=== PATIENT | female | born 1970 | race Caucasian/White ===

== ENCOUNTER 2017-04-24 00:46 | Inpatient (IN) | payer OTHER ==
[~2017-04-24] VITALS: Ht 172.7 cm; Wt 64.4 kg
--- NOTE | 2017-04-24 07:29 | Operative Report ---
Operative/Inv Procedure Report Surgery Date: 04/24/17 Name of Procedure: 1. Exploration of C5/6 arthrodesis and removal of anterior hardware 2. C4/5, C6/7 ACDF with 4webb interbody cages, autograft, DBM, anterior plate and screws Pre-Operative Diagnosis: C4/5, C6/7 spondylosis, DDD, stenosis Post-Operative Diagnosis: same Estimated Blood Loss: less than 50ml Surgeon/Distribution Designer: Shasha SCHNEIDER,Jose Womack MD Anesthesia: general endotracheal tube Monitors: neurophysiologic monitoring, nims tube IV Fluids: 1400 replaced with crystalloid Implants: synthes Urine Output: 900cc via reyna Drains: medium ANA Specimens: C4/5, C6/7 disc, C5/6 explanted hardware Complications: none Condition: stable Operative Indication: 46yo woman with prior C5/6 ACDF now with progressive spondylosis and stenosis at levels of C4/5, C6/7 with increasing neck and bilat arm pain and parasthesias and LUE weakness despite trial of conservative care now presents for operative intervention and instrumented fusion with exploration of prior level of surgery and removal of hardware. Operative/Procedure Note Note: Patient was taken to the operating room. After appropriate patient identification, neurophysiologic monitoring leads were placed and baseline recordings were obtained. Patient underwent smooth induction of general endotracheal anesthesia with a Nims tube without complication. Reyna catheter was sterilely inserted. DVT prophylaxis utilized throughout the case. Patient given 2 g IV Preoperative Prophylaxis. SHe Was Positioned Supine on the Operating Table with the Neck Slightly Extended on a Donut and Shoulders Retracted Downward with Tape. The right Ventral Neck Widely Prepped and Draped Usual Sterile Fashion Using Probe Iodine Solution. Prior surgery was done via the left neck and preop laryngoscopy showed bilat mobile vocal cords. A skin incision made at each level with a 10 blade knife. Dissection was carried down through the subcutaneous tissue with the Bovie to the platysma which was undermined elevated and divided. Subplatysmal planes were created rostrally and caudally. Medial sternocleidomastoid muscle was identified in the overlying fascia incised. A combination of digital and blunt dissection was used medial to the sternocleidomastoid and lateral to the trachea and esophagus down to the prevertebral fascia. Scar from the previous ACDF was encountered increasing the complexity of the dissection. The prevertebral Fascia was incised with the Bovie and swept off the ventral vertebral bodies with a peanut. Disc spaces were identified above and below the previous surgical level. A small gauge spinal needle was placed superficially in the lower interspace and a lateral fluoroscopic x-ray obtained and confirmed this to be C6/7. The longus coli muscle was reflected bilaterally and self- retaining retractors were placed beneath the muscle. The previous surgical fusion at C5/6 was explored and noted to be solid. The venture plate was dissected free of overlying scar and the plate and 4 screws were removed. An annulotomy at C6/7 was made with a 15 blade knife. Cameron pins placed in the C6 and C7 vertebral body of the disc space gently distracted. A complete discectomy was performed using combination of the drill, straight and angled curettes and pituitary rongeurs. Kerrison rongeurs were used to resect to the endplate osteophytes. Posterior longitudinal ligament was elevated and sequentially resected with the Kerrisons and an excellent decompression of the underlying dural sac and nerve roots. The disc space was irrigated and hemostasis ensured before placement of the cage. With the decompression completed, the cartilaginous endplates were stripped and the endplates were prepared for arthrodesis. A 7mm synthes 4Webb titanium cage was selected after trials, filled with morcellated autograft from the osteophytectomy and DBM, and gently tamped into the interspace under direct and fluoroscopic guidance and countersunk by approximately 1-2 mm. Cameron pins were removed in a small amount of bone bleeding easily controlled with bone wax. The ventral aspect the vertebral bodies were contoured with the drill to facilitate placement of the anterior plate. A 14mm synthes plate was selected and provisionally placed. The plate was fixed to the vertebral bodies with a series of 16mm screws, piercing the cortex withg an awl and placing self drilling self tapping screws. All screws were finally tightened deployinbg the locking mechanism at all 4 locations. We then focusd our attention to C4/5 and in an analogous fashion, Cameron pin replaced at this level and the interspace gently distracted. Large anterior osteophytes were resected with a leksell and kerrison rongeurs and bone saved. A discectomy was completed and the PLL totally resected with excellent decompression. Prominent endplate spurring off the left inferior aspect of C4 was thinned with the drill and resected with kerrisons. An excellent decompression of the thecal sac was accomplished. With the decompression completed, the cartilaginous endplates were stripped and the endplates decorticated for arthrodesis. After appropriate trials, a second 7 mm Synthes 4webb cage was selected. It was filled with morcellated autograft from the osteophytectomy and DBM and gently tamped into the interspace under direct and fluoroscopic guidance and countersunk by approximately 1-2 mm. Cameron pins were removed and a small amount of bone bleeding easily controlled with bone wax. The ventral aspect the vertebral bodies were contoured with the drill to facilitate placement of the anterior plate. A 14mm plate was selected and provisionally placed. The plate was fixed to the C6 and C7 vertebral bodies with a series of 16mm screws, piercing the cortex withg an awl and placing self drilling self tapping screws. All screws were finally tightened deployinbg the locking mechanism at all 4 locations. Final AP and lateral x-rays were obtained and saved and showed excellent position of the instrumentation. Meticulous hemostasis was achieved. The wound was copiously irrigated. A medium ANA drain placed into the wound and secured to the skin with a 2-0 nylon suture. Neurophysiologic monitoring was stable throughout the case and wound closure begun. Platysma was reapproximated with interrupted 2-0 Vicryl suture. The skin was closed in layers with interrupted 2-0 Vicryl suture in the dermis and a running 4-0 Vicryl subcuticular stitch in the skin. The wounds clean and dry. Steri- Strips and a sterile occlusive dressing was placed. Patient was awakened, extubated and taken to PACU in stable condition. All four extremities were noted to be moving at the completion of the case. All sponge, needle, instrument counts were correct times three. Neurophysiologic monitoring was stable. Discharge Disposition: PACU
--- NOTE | 2017-04-24 11:23 | Operative Report ---
Operative/Inv Procedure Report Surgery Date: 04/24/17 Name of Procedure: Exploration of this the 54 cervical fusion. Removal of anterior C5-C6 titanium instrumentation. Anterior C4 5 discectomy. Anterior C4 5 insertion of interbody titanium cage. Anterior C4 5 arthrodesis utilizing autologous bone graft. Anterior C4 5 instrumentation utilizing titanium plate and screws. Anterior C6-C7 discectomy and fusion with autologous bone graft and interbody titanium cage. Anterior C6 to C7 instrumentation utilizing Synthes titanium plate. Pre-Operative Diagnosis: C4 5 C6-C7 degenerative herniated disc Post-Operative Diagnosis: Same Estimated Blood Loss: 50ml to 100ml Surgeon/Setter Cold Rolling Machine: Jose Greenwood MD and Delmi Pulliam MD Anesthesia: general endotracheal tube Operative/Procedure Note Note: Patient was brought into the operating room undergoing endotracheal intubation arms were placed at the side, head was placed in slight extension. Shoulders were taped downwards and all bony prominences well-padded. The procedure was performed under fluoroscopic guidance with the x-ray plant health care technician to room throughout the case. This performed under elective physiological monitoring with the technicians room throughout the case. The anterior neck was washed with alcohol and Betadine and prepped with a DuraPrep solution draped in usual sterile fashion. An incision was made to the right of midline and developed down through the length subcutaneous teeniest tissues. The platysma was opened along the same incision and then undermined superiorly and inferiorly. An avascular plane medial to the sternal collateral and carotid and lateral to the trachea and esophagus were followed in the anterior spine was accessed. There liberating the eschar off the prior plate, the plate was mobilized screws were removed and then the plate was removed such that access could be achieved to the C5 and C6 vertebra. The C6-C7 disc space was accessed first. Lateral traction was placed underneath the longus colli muscles and superior inferior traction was achieved with Enfield pin retraction. The space was entered with 11 blade and removed with a combination of straight and curved rongeurs and straight and curved curettes. The cartilaginous end plates removed as well. Bony osteophytes were now removed morcellized and later used in the arthrodesis. The posterior longitudinal ligament was lifted foramen to foramen. Posterior osteophytes was removed and use in the arthrodesis. Morselized bone was then centrally filled into a titanium cage together with demineralized bone. A 7 mm lordotic cage was used then gently tapped into the interspace. Enfield pins were removed and bone wax was used for pin sites. An anterior Synthes plate was now tightly affixed to the spine with the titanium screws and secured. The C4 5 disc was now entered with 11 blade and removed a combination of straight and curved rongeurs and straight curettes. Similar Enfield pin distraction was achieved at C4 and C5. Osteophytes were removed morcellized and later used in the arthrodesis. Lantus endplates were away from the bony endplates and the bony end plates were partially decorticated. Osteophyte was removed especially superiorly and undermined and use in the arthrodesis. A 7 mm titanium cage was centrally filled with autologous bone graft and demineralized bone and tapped into the interspace. Enfield pins were removed and then bone wax was used for hemostasis. An anterior Synthes titanium plate was now applied and fixed to the anterior spine with titanium screws. Copious amounts of irrigation were used with bacitracin. A round #10 ANA drain was removed and secured to the skin through separate stab incision. The platysma was then closed using inverted 3-0 Vicryl's and a 4 Vicryl subcuticular closure for the skin with Steri-Strips. She was extubated and taken to the recovery room having tolerated procedure well.
[2017-04-24 13:53] VITALS: BP 113/64
--- NOTE | 2017-04-24 14:15 | Admission Core Measures ---
Acute Coronary Syndrome (CM) ACS Core Measures Acute Coronary Syndrome Diagnosis No Congestive Heart Failure (NEW) CHF Core Measures Congestive Heart Failure Diagnosis No Cerebrovascular Accident (NEW) CVA Core Measures CVA/TIA Diagnosis No Venous Thromboembolism VTE Core Mack (View Protocol) VTE Risk Factors Surgery No Mechanical VTE Prophylaxis d/t N/A MechProphylax Ordered No VTE Pharm Prophylaxis d/t NA PharmProphylax ordered Problem List As ranked by this Provider includes Assessment & Plan 1. Spinal stenosis in cervical region HOME MEDS Home Med List No Known Home Medications
--- NOTE | 2017-04-24 14:15 | PN- Neurosurgical ---
Subjective Subjective: Postop check: Patient complaints of feeling "a little sore" and mild sore throat. Otherwise she is feeling well, she is in good spirits, she has no neurologic deficits, she is awake and alert, tolerating liquids Objective Vital Signs and I&Os Vital Signs Date Time Temp Pulse Resp B/P B/P Pulse O2 O2 Flow FiO2 Mean Ox Delivery Rate 04/24 1353 97.8 64 18 113/64 98 Room Air Physical Exam: Well-developed well-nourished no apparent distress. HEENT: Atraumatic, extraocular motion intact Neck: Supple, no significant swelling, c-collar in place, dressing clean dry and intact, ANA drain in place, a few cc of red bloody drainage noted in bulb trachea midline Respiratory: No respiratory distress Extremities: No edema, no calf pain Neuro: Alert and oriented x3 bilateral upper extremities and lower extremities are neurovascularly intact with sensation and motor grossly intact, no noted deficits. Psych: Mood affect normal, normal memory normal judgment. Skin: Warm and dry, no rash on exposed skin Assessment/Plan Assessment/Plan Postop day #0 status post Exploration of C5/6 arthrodesis and removal of anterior hardware, C4/5, C6/7 ACDF with 4webb interbody cages, autograft secondary to C4/5, C6/7 spondylosis, DDD, stenosis Pain medication as needed. Mechanical soft diet. Heparin subcutaneous to start in a.m. for DVT ppx ALPS for DVT ppx Valium for spasm. Perioperative antibiotics will drain is in place. Continue ANA drain is self suction. Out of bed. Cervical collar. IV fluids and tolerating adequate by mouth Neuro checks Dressing change postop day 2 Core Measures Venous Thromboembolism VTE Risk Factors Surgery No Mechanical VTE Prophylaxis d/t N/A MechProphylax Ordered No VTE Pharm Prophylaxis d/t NA PharmProphylax ordered
--- NOTE | 2017-04-24 15:36 | RADIOLOGY REPORT ---
EXAMINATION: CR CERVICAL SPINE/INTRAOPERATIVE FLUOROSCOPY CLINICAL INDICATION: ACD C4-C5, C6-C7 in OR. COMPARISON: None TECHNIQUE/FINDINGS: Fluoroscopic equipment was dedicated to the operating room for the performance of an intraoperative procedure. Several spot films (4) were acquired and are archived in PACS. Please refer to operative notes for procedural detail. FLUOROSCOPY TIME: 18 seconds. IMPRESSION: Administrative dictation for intraoperative fluoroscopy and image archiving in PACS. Please refer to operative notes for details.
[2017-04-24 16:49] VITALS: BP 122/77
[2017-04-24 21:33] VITALS: BP 122/77
[2017-04-25 01:12] VITALS: BP 120/60
[2017-04-25 05:05] VITALS: BP 110/70
--- NOTE | 2017-04-25 08:31 | PN- Neurosurgical ---
Subjective Subjective: POD#1 S/P C SPINE FUSION/E EXPLORATION NO MAJOR ISSUE OVENRNIGHT DENEIS CP, SOB, NO N+V WITH WATER Objective Vital Signs and I&Os Vital Signs Date Time Temp Pulse Resp B/P B/P Pulse O2 O2 Flow FiO2 Mean Ox Delivery Rate / 0600 95 Room Air 04/25 0505 99.3 60 18 110/70 95 Room Air 04/25 0112 99.3 54 16 120/60 95 Room Air 04/24 2200 98 Room Air 04/24 2133 98.1 50 20 122/77 99 04/24 1722 Room Air Room Air 04/24 1649 97.6 51 18 122/77 99 04/24 1353 97.8 64 18 113/64 98 Room Air Intake & Output 04/25 1600 04/25 0800 04/25 0000 04/24 1600 04/24 0800 04/24 0000 Intake Total 560 320 Output Total 635 Balance -75 320 Intake, IV 320 80 Intake, Oral 240 240 Output, 35 Drainage Output, Urine 600 Patient 142 lb 140 lb Weight Weight Bed scale Measurement Method Physical Exam: CV: RRR LUNGS: CLEAR ABD: SOFT, +BS EXT: NO UE FOCAL DFICITS DSG DRY ANA: 35CC/POST OP TIL NOW Assessment/Plan Assessment/Plan NEURO STABLE PLAN CONT DRAIN /ABX OOB/AMBULATE ADVANCE DIET TOLERATED D/C IVF WHEN TIGIST PO LIKELY D/C TOMORROW Core Measures Venous Thromboembolism VTE Risk Factors Surgery No Mechanical VTE Prophylaxis d/t N/A MechProphylax Ordered No VTE Pharm Prophylaxis d/t NA PharmProphylax ordered
--- NOTE | 2017-04-25 13:00 | PN- Neurosurgical ---
Subjective Subjective: Pt doing well. Throat sore, swallow intact. Objective Vital Signs and I&Os Vital Signs Date Time Temp Pulse Resp B/P B/P Pulse O2 O2 Flow FiO2 Mean Ox Delivery Rate 04/25 0600 95 Room Air 04/25 0505 99.3 60 18 110/70 95 Room Air 04/25 0112 99.3 54 16 120/60 95 Room Air 04/24 2200 98 Room Air 04/24 2133 98.1 50 20 122/77 99 04/24 1722 Room Air Room Air 04/24 1649 97.6 51 18 122/77 99 04/24 1353 97.8 64 18 113/64 98 Room Air Intake & Output 04/25 1600 04/25 0800 04/25 0000 04/24 1600 04/24 0800 04/24 0000 Intake Total 560 320 Output Total 635 Balance -75 320 Intake, IV 320 80 Intake, Oral 240 240 Output, 35 Drainage Output, Urine 600 Patient 64.41 kg 64.41 kg 63.503 kg Weight Weight Bed scale Measurement Method Physical Exam: AF, VSS incision c,d,i flat voice clear without hoarseness, able to swallow thin and thick liquids, applesauce, ice cream neuro exam is normal bilat UE, LE voiding on own drain output 35cc since OR serosanguinous Current Medications: Current Medications Sig/Francisca Start time Last Medication Dose Route Stop Time Status Admin Acetaminophen 650 MG Q4P PRN 04/24 1345 AC PO Bisacodyl 10 MG DAILY PRN 04/24 1345 AC WV Cefazolin Sodium 2 GM IQ8 04/24 1600 AC 04/25 N/A 1 UNIT IV 04/25 1559 0924 Diazepam 5 MG Q8P PRN 04/24 1345 AC 04/24 PO 1909 Docusate Sodium 100 MG BID 04/24 2200 AC 04/25 PO 0923 Heparin Sodium 5,000 UNIT Q8 04/25 0600 AC 04/25 (Porcine) SC 0528 Hydromorphone HCl 0.6 MG Q4P PRN 04/24 1415 AC 04/25 IV 0420 Hydromorphone HCl 1 MG Q4-6 PRN PRN 04/24 1345 AC 04/25 PO 0921 Influenza Virus 0.5 ML ONCE ONE 04/24 1430 DC Vaccine IM 04/24 1431 Ondansetron HCl 4 MG Q6P PRN 04/24 1345 AC IV Oxycodone/ 2 TAB Q4P PRN 04/24 1345 AC Acetaminophen PO Phenol 2 SPRAY Q2P PRN 04/24 2345 AC 04/25 EXT 0132 Sodium Chloride 1,000 ML Q12H 04/24 1345 AC 04/25 IV 04/25 1344 0117 Trimethobenzamide HCl 200 MG Q6P PRN 04/24 1345 AC IM Zolpidem Tartrate 2.5 MG AT BEDTIME NEED.. 04/24 1345 AC PO Results Last 48 Hours of Labs: Laboratory Tests 04/24 0621 Urines Urine Test NEGATIVE Assessment/Plan Assessment/Plan Pt POD1 s/p C4/5, C6/7 ACDF with exploration of C5/6 and removal of prior instrumentation and doing well. Neuro exam intact. Mod sore throat. Plan: -OOB ambulating -HLIV -dc drain if less than 15cc by 2pm -pt ok to dc home later today if ambulating, ashley po -fu with me 2 wks, dc instructions discussed Core Measures Venous Thromboembolism VTE Risk Factors Surgery No Mechanical VTE Prophylaxis d/t N/A MechProphylax Ordered No VTE Pharm Prophylaxis d/t NA PharmProphylax ordered Attending MD Review Statement Attending Statement Attending MD Statement: examined this patient, discuss w/resident/PA/PIERCING ARTIST
[2017-04-25] MEDS ORDERED: DIAZEPAM5 M1 PO (14:24)
[2017-04-25] MEDS ORDERED: PERCOCET 5-3251 EACH PO (14:24)
--- NOTE | 2017-04-25 14:44 | Discharge Summary ---
Visit Information Visit Dates Admission Date: 04/24/17 Discharge Date: 04/25/17 Hospital Course Course Attending Physician: Delmi Pulliam MD Primary Care Physician: Allie Velez MD Hospital Course: Mrs Vargas is a 46-year-old female was taken to the operating room on 2017, by Dr. Thorne, for anterior cervical fusion, and reexploration of previous anterior cervical fusion. She tolerated the procedure well and she was transferred to the floor. Postoperatively her diet was advanced as tolerated and a drain that was placed intraoperatively was removed on postop day 1 with minimal drainage. On postop day 1 her pain was well controlled with by mouth medication and she was using Valium at the time for posterior neck spasms. She had no complaints of upper extremity numbness weakness or pain. And on discharge she was resting comfortably upright in bed with a cervical collar. Her hospital stay was otherwise unremarkable Complications: None Allergies: Coded Allergies: No Known Allergies (04/21/17) Significant Procedures: Anterior cervical fusion Disposition Summary Disposition Principal Diagnosis: Cervical radiculopathy Additional Diagnosis: None Discharge Disposition: home or self care Discharge Instructions General Discharge Information Code Status: Full Code Patient's Diet: Mechanical soft diet Patient's Activity: May be out of bed weightbearing as tolerated. Please ambulate with cervical collar on Follow-Up Instructions/Appts: Where bandage went in shower and remove and change immediately post shower, keep wound clean dry and intact with dry sterile dressing daily Medications at Discharge Discharge Medications: Start taking the following new medications: Oxycodone HCl/Acetaminophen (Percocet 5-325 MG Tablet) 5 MG-325 MG TABLET 2 Tablet ORAL EVERY 4 HOURS NEEDED as needed for PAIN SCALE 4-6 (MODERATE ) Qty = 36 No Refills Diazepam (Diazepam) 5 MG TABLET 1 Tablet ORAL EVERY 8 HOURS NEEDED as needed for SPASMS Qty = 30 No Refills Copies To: Delmi Pulliam MD
== END 2017-04-25 15:30 | DRG 473 ==
LOC: 2NB 00:46 → SDA 00:46 → ENRESERV 12:07 → ENTRNSPT 12:32 → EDTRNSPTSTS 13:08 → 2NB 13:17 → CMPTRNSPT 13:36 → ENPENDDIS 04-25 14:26 → ENTRNSPT 04-25 15:10 → EDTRNSPTSTS 04-25 15:27 → EDTRNSPT 04-25 15:27 → 2NB 04-25 15:30 → CMPTRNSPT 04-25 15:39
PROC: 0RT30ZZ Resection of Cervical Vertebral Disc, Open Approach (ICD-10-PCS; principal; 2017-04-24)
PROC: 0PP304Z Removal of Internal Fixation Device from Cervical Vertebra, Open Approach (ICD-10-PCS; principal; 2017-04-24)
PROC: 4A11X4G Monitoring of Peripheral Nervous Electrical Activity, Intraoperative, External Approach (ICD-10-PCS; principal; 2017-04-24)
PROC: 0RG20A0 Fusion of 2 or more Cervical Vertebral Joints with Interbody Fusion Device, Anterior Approach, Anterior Column, Open Approach (ICD-10-PCS; principal; 2017-04-24)
DX: M48.02 Spinal stenosis, cervical region (principal); F17.200 Nicotine dependence, unspecified, uncomplicated; M47.9 Spondylosis, unspecified; J45.909 Unspecified asthma, uncomplicated; K21.9 Gastro-esophageal reflux disease without esophagitis; K64.9 Unspecified hemorrhoids; M54.12 Radiculopathy, cervical region; Z98.1 Arthrodesis status
CPT/HCPCS: 2NBP; 36415; 72040; 81025; C1713; C9399; J0131; J0690; J1644; J2405; J3250